=== PATIENT | male | born 1935 | race Caucasian/White ===

== ENCOUNTER 2016-10-31 22:52 | Inpatient (IN) | payer MEDICARE ==
[2016-10-31 23:23] LABS: APPEARANCE,URINE Clear; BILIRUBIN,URINE NEGATIVE (NEGATIVE); COLOR,URINE Yellow; GLUCOSE, URINE (UA) NEGATIVE (NEGATIVE); KETONES,URINE NEGATIVE (NEGATIVE); LEUKOCYTE ESTERASE ,URINE NEGATIVE (NEGATIVE); NITRATE,URINE NEGATIVE (NEGATIVE); OCCULT BLOOD,URINE 2+ (NEG-TRACE); PH,URINE 5.5; UROBILINOGEN,URINE 0.2 (0.2-1.0 EU)
[2016-10-31 23:29] LABS: RBC,URINE 0-2 (0-3AV/HPF); WBC,URINE 0-2 (0-5AV/HPF)
[2016-10-31 23:39] LABS: BASOPHILS % (AUTO) 1 % (0-3); EOSINOPHILS % (AUTO) 3 % (0-9); HEMATOCRIT 35 % (39-53); MEAN CORPUSCULAR VOLUME 94 fL (80-100); MONOCYTES % (AUTO) 6.3 % (0-12)
[2016-10-31 23:46] LABS: CALCIUM 8.7 mg/dl (8.5-10.1); POTASSIUM 4.7 mMol/L (3.5-5.1)
[2016-11-01] MEDS: SODIUM CHLORIDE 0.9% FLUSH 10 ML SOL IV SCH ×4 (01:00→17:15)
[2016-11-01] MEDS ORDERED: MORPHINE SULFATE 10 MG/ML SOL IV PRN (01:40)
[2016-11-01] MEDS ORDERED: SODIUM CHLORIDE 0.9% 500 ML 500 ML IV ONE (02:10)
[2016-11-01] MEDS ORDERED: AZITHROMYCIN 500 MG PDS IV ONE (02:10)
[2016-11-01] MEDS: SODIUM CHLORIDE 0.9% 1000ML 1,000 ML IV SCH ×2 (02:26→17:14)
[2016-11-01] MEDS: AZITHROMYCIN 500 MG PDS 500 MG in SODIUM CHLORIDE 0.9% 500 ML 500 ML IV SCH (02:26)
[2016-11-01] MEDS: ACETAMINOPHEN 325 MG PO PRN ×2 (02:27→09:34)
[2016-11-01] MEDS: LEVOTHYROXINE SODIUM 50 MCG TAB PO SCH (06:29)
[2016-11-01] MEDS ORDERED: FUROSEMIDE 20 MG TAB PO SCH (09:00)
[2016-11-01] MEDS: TAMSULOSIN HYDROCHLORIDE 0.4 MG CAP PO SCH (09:33)
[2016-11-01] MEDS: LISINOPRIL 20 MG TAB PO SCH (09:34)
[2016-11-01] MEDS: GABAPENTIN 300 MG CAP PO SCH ×3 (09:34→21:44)
[2016-11-01] MEDS: ALLOPURINOL 100 MG TAB PO SCH (09:34)
[2016-11-01] MEDS: ATENOLOL 25 MG TAB PO SCH (09:34)
[2016-11-01] MEDS: BUPROPION PO SCH (12:17)
[2016-11-01] MEDS: METFORMIN HCL 850 MG PO SCH (12:17)
[2016-11-01] MEDS ORDERED: CYANOCOBALAMIN 1000 MCG/ML SOL IM SCH (15:00)
[2016-11-01] MEDS ORDERED: CYANOCOBALAMIN 1000 MCG/ML SOL IM ONE (15:45)
[2016-11-01] MEDS ORDERED: ALBUTEROL NEB SOL 2.5MG/3ML 1 VIAL SOL NEB PRN (16:55)
[2016-11-01] MEDS: WARFARIN SODIUM 5 MG TAB PO SCH (18:48)
[2016-11-02] MEDS ORDERED: AZITHROMYCIN 500 MG PDS IV ONE (01:04)
[2016-11-02] MEDS ORDERED: SODIUM CHLORIDE 0.9% 500 ML 500 ML IV ONE (01:04)
[2016-11-02] MEDS: AZITHROMYCIN 500 MG PDS 500 MG in SODIUM CHLORIDE 0.9% 500 ML 500 ML IV SCH (01:23)
[2016-11-02] MEDS: SODIUM CHLORIDE 0.9% FLUSH 10 ML SOL IV SCH ×3 (01:25→17:24)
[2016-11-02] MEDS: SODIUM CHLORIDE 0.9% 1000ML 1,000 ML IV SCH ×2 (05:21→16:56)
[2016-11-02] MEDS: LEVOTHYROXINE SODIUM 50 MCG TAB PO SCH (06:12)
[2016-11-02] MEDS: BUPROPION PO SCH (09:32)
[2016-11-02] MEDS: TAMSULOSIN HYDROCHLORIDE 0.4 MG CAP PO SCH (09:32)
[2016-11-02] MEDS: FUROSEMIDE 40 MG TAB PO SCH (09:33)
[2016-11-02] MEDS: METFORMIN HCL 850 MG PO SCH (09:34)
[2016-11-02] MEDS: ATENOLOL 25 MG TAB PO SCH (09:34)
[2016-11-02] MEDS: LISINOPRIL 20 MG TAB PO SCH (09:34)
[2016-11-02] MEDS: GABAPENTIN 300 MG CAP PO SCH ×3 (09:34→20:45)
[2016-11-02] MEDS: ALLOPURINOL 100 MG TAB PO SCH (09:35)
[2016-11-02] MEDS: ACETAMINOPHEN 325 MG PO PRN (12:27)
[2016-11-02] MEDS: WARFARIN SODIUM 5 MG TAB PO SCH (17:23)
[2016-11-03] MEDS: SODIUM CHLORIDE 0.9% FLUSH 10 ML SOL IV SCH ×3 (01:41→17:33)
[2016-11-03] MEDS: AZITHROMYCIN 500 MG PDS 500 MG in SODIUM CHLORIDE 0.9% 500 ML 500 ML IV SCH (01:41)
[2016-11-03] MEDS: LEVOTHYROXINE SODIUM 50 MCG TAB PO SCH (06:49)
[2016-11-03] MEDS: ACETAMINOPHEN 325 MG PO PRN (08:00)
[2016-11-03] MEDS: BUPROPION PO SCH (09:09)
[2016-11-03] MEDS: ATENOLOL 25 MG TAB PO SCH (09:10)
[2016-11-03] MEDS: FUROSEMIDE 40 MG TAB PO SCH (09:10)
[2016-11-03] MEDS: METFORMIN HCL 850 MG PO SCH (09:10)
[2016-11-03] MEDS: GABAPENTIN 300 MG CAP PO SCH ×3 (09:10→20:12)
[2016-11-03] MEDS: TAMSULOSIN HYDROCHLORIDE 0.4 MG CAP PO SCH (09:10)
[2016-11-03] MEDS: LISINOPRIL 20 MG TAB PO SCH (09:11)
[2016-11-03] MEDS: ALLOPURINOL 100 MG TAB PO SCH (09:11)
[2016-11-03] MEDS: WARFARIN SODIUM 5 MG TAB PO SCH (17:34)
[2016-11-03] MEDS: AMLODIPINE 5 MG TAB PO SCH (21:47)
[2016-11-04] MEDS ORDERED: AZITHROMYCIN 500 MG PDS IV ONE (01:15)
[2016-11-04] MEDS ORDERED: SODIUM CHLORIDE 0.9% 500 ML 500 ML IV ONE (01:15)
[2016-11-04] MEDS: AZITHROMYCIN 500 MG PDS 500 MG in SODIUM CHLORIDE 0.9% 500 ML 500 ML IV SCH (01:29)
[2016-11-04] MEDS: SODIUM CHLORIDE 0.9% FLUSH 10 ML SOL IV SCH ×4 (01:34→18:45)
[2016-11-04] MEDS: LEVOTHYROXINE SODIUM 50 MCG TAB PO SCH (06:55)
[2016-11-04] MEDS: TAMSULOSIN HYDROCHLORIDE 0.4 MG CAP PO SCH (08:19)
[2016-11-04] MEDS: BUPROPION PO SCH (08:19)
[2016-11-04] MEDS: METFORMIN HCL 850 MG PO SCH (08:20)
[2016-11-04] MEDS: ATENOLOL 25 MG TAB PO SCH (08:20)
[2016-11-04] MEDS: FUROSEMIDE 40 MG TAB PO SCH (08:20)
[2016-11-04] MEDS: GABAPENTIN 300 MG CAP PO SCH ×3 (08:20→21:05)
[2016-11-04] MEDS: LISINOPRIL 20 MG TAB PO SCH (08:21)
[2016-11-04] MEDS: ALLOPURINOL 100 MG TAB PO SCH (08:21)
[2016-11-04] MEDS: AMLODIPINE 5 MG TAB PO SCH ×2 (08:22→10:44)
[2016-11-04] MEDS ORDERED: WARFARIN SODIUM 5 MG TAB PO SCH (18:00)
[2016-11-04] MEDS ORDERED: AMLODIPINE 5 MG TAB PO ONE (21:08)
[2016-11-05] MEDS: LEVOTHYROXINE SODIUM 50 MCG TAB PO SCH (06:03)
[2016-11-05] MEDS: SODIUM CHLORIDE 0.9% FLUSH 10 ML SOL IV SCH ×2 (06:04→08:41)
[2016-11-05 07:33] LABS: CALCIUM 8.2 mg/dl (8.5-10.1)
[2016-11-05 07:38] VITALS: BP 182/64; TEMP 97.6; O2SAT 95
[2016-11-05 07:44] LABS: BASOPHILS % (AUTO) 1 % (0-3); EOSINOPHILS % (AUTO) 5 % (0-9); HEMATOCRIT 31 % (39-53); MEAN CORPUSCULAR HGB CONC 35.5 gm/dl (32.0-36.0); MEAN CORPUSCULAR VOLUME 93 fL (80-100); MONOCYTES % (AUTO) 10.4 % (0-12); NEUTROPHILS % (AUTO) 57.7 % (37-80)
[2016-11-05 07:53] VITALS: PULSE 67; RESP 18
[2016-11-05] MEDS: FUROSEMIDE 40 MG TAB PO SCH (08:38)
[2016-11-05] MEDS: BUPROPION PO SCH (08:38)
[2016-11-05] MEDS: METFORMIN HCL 850 MG PO SCH (08:38)
[2016-11-05] MEDS: TAMSULOSIN HYDROCHLORIDE 0.4 MG CAP PO SCH (08:38)
[2016-11-05] MEDS: GABAPENTIN 300 MG CAP PO SCH (08:39)
[2016-11-05] MEDS: ATENOLOL 25 MG TAB PO SCH (08:39)
[2016-11-05] MEDS: LISINOPRIL 20 MG TAB PO SCH (08:40)
[2016-11-05] MEDS: ALLOPURINOL 100 MG TAB PO SCH (08:40)
[2016-11-05] MEDS: AMLODIPINE 5 MG TAB PO SCH (08:42)
== END 2016-11-05 09:50 | disposition swing bed (61) | DRG 195 ==
LOC: ED 22:52 → ACUTE CARE 11-01 01:04
PROVIDERS: ADMIT Family Medicine; ATTEND Family Medicine
PROC: F01ZDZZ Gait and/or Balance Assessment (ICD-10-PCS; principal; 2016-11-01)
PROC: F01ZBZZ Bed Mobility Assessment (ICD-10-PCS; 2016-11-01)
PROC: F01ZCZZ Transfer Assessment (ICD-10-PCS; 2016-11-01)
PROC: F02Z1ZZ Dressing Assessment (ICD-10-PCS; 2016-11-02)
PROC: F02Z3ZZ Grooming/Personal Hygiene Assessment (ICD-10-PCS; 2016-11-02)
DX: J18.9 Pneumonia, unspecified organism (principal); M79.604 Pain in right leg; Z79.01 Long term (current) use of anticoagulants; W18.2XXA Fall in (into) shower or empty bathtub, initial encounter; S61.412A Laceration without foreign body of left hand, initial encounter; R53.1 Weakness
CPT/HCPCS: 36415; 71010; 73110; 73502; 80048; 81001; 82962; 85025; 85610; 94150; 94640; 94664; 99070; 99222; 99285; J0456; J2270; J3420; J7603; A6232

== ENCOUNTER 2016-11-05 09:01 | Inpatient (IN) | payer MEDICARE ==
[2016-11-05] MEDS ORDERED: ACETAMINOPHEN 325 MG PO PRN (10:13)
[2016-11-05] MEDS: GABAPENTIN 300 MG CAP PO SCH ×2 (11:43→20:11)
[2016-11-05] MEDS: WARFARIN SODIUM 2.5 MG TAB PO SCH (15:21)
[2016-11-05] MEDS: CHOLECALCIFEROL 1,000 IU TAB PO SCH (20:11)
[2016-11-06] MEDS: LEVOTHYROXINE SODIUM 50 MCG TAB PO SCH (06:32)
[2016-11-06] MEDS: UBIDECARENONE 100 MG CAPSULE PO SCH (08:30)
[2016-11-06] MEDS: TAMSULOSIN HYDROCHLORIDE 0.4 MG CAP PO SCH (08:30)
[2016-11-06] MEDS: METFORMIN HCL 850 MG TABLET PO SCH (08:30)
[2016-11-06] MEDS: GABAPENTIN 300 MG CAP PO SCH ×3 (08:31→20:18)
[2016-11-06] MEDS: ATENOLOL 25 MG TAB PO SCH (08:31)
[2016-11-06] MEDS: AMLODIPINE 5 MG TAB PO SCH (08:31)
[2016-11-06] MEDS: CHOLECALCIFEROL 1,000 IU TAB PO SCH ×2 (08:32→20:18)
[2016-11-06] MEDS: BUPROPION 75 MG TAB PO SCH (08:32)
[2016-11-06] MEDS: LISINOPRIL 20 MG TAB PO SCH (08:32)
[2016-11-06] MEDS: ALLOPURINOL 100 MG TAB PO SCH (08:33)
[2016-11-06] MEDS ORDERED: FUROSEMIDE 20 MG TAB PO SCH (09:00)
[2016-11-06] MEDS: WARFARIN SODIUM 2.5 MG TAB PO SCH (17:13)
[2016-11-06] MEDS: ALBUTEROL NEB SOL 2.5MG/3ML 1 VIAL SOL NEB PRN (17:16)
[2016-11-06] MEDS ORDERED: AZITHROMYCIN 250 MG TAB PO ONE (19:57)
[2016-11-06] MEDS ORDERED: CEFUROXIME 250 MG/5 ML PDR PO SCH (21:00)
[2016-11-06] MEDS: CEFPROZIL 250 MG/5 ML SUSP.RECON PO SCH (21:09)
[2016-11-07] MEDS: LEVOTHYROXINE SODIUM 50 MCG TAB PO SCH (06:48)
[2016-11-07] MEDS: AMLODIPINE 5 MG TAB PO SCH (08:07)
[2016-11-07] MEDS: ALLOPURINOL 100 MG TAB PO SCH (08:07)
[2016-11-07] MEDS: CHOLECALCIFEROL 1,000 IU TAB PO SCH ×2 (08:07→20:58)
[2016-11-07] MEDS: ATENOLOL 25 MG TAB PO SCH (08:08)
[2016-11-07] MEDS: GABAPENTIN 300 MG CAP PO SCH ×3 (08:08→20:58)
[2016-11-07] MEDS: UBIDECARENONE 100 MG CAPSULE PO SCH (08:09)
[2016-11-07] MEDS: BUPROPION 75 MG TAB PO SCH (08:09)
[2016-11-07] MEDS: TAMSULOSIN HYDROCHLORIDE 0.4 MG CAP PO SCH (08:09)
[2016-11-07] MEDS: LISINOPRIL 20 MG TAB PO SCH (08:09)
[2016-11-07] MEDS: METFORMIN HCL 850 MG TABLET PO SCH (08:09)
[2016-11-07] MEDS: CEFPROZIL 250 MG/5 ML SUSP.RECON PO SCH ×2 (08:16→21:03)
[2016-11-07] MEDS: FUROSEMIDE 40 MG TAB PO SCH (13:42)
[2016-11-07] MEDS: ALBUTEROL NEB SOL 2.5MG/3ML 1 VIAL SOL NEB PRN (15:05)
[2016-11-07] MEDS: WARFARIN SODIUM 2.5 MG TAB PO SCH (17:58)
[2016-11-07] MEDS: AZITHROMYCIN 250 MG TAB PO SCH (21:02)
[2016-11-08] MEDS: LEVOTHYROXINE SODIUM 50 MCG TAB PO SCH (06:01)
[2016-11-08] MEDS: GABAPENTIN 300 MG CAP PO SCH ×3 (09:18→20:37)
[2016-11-08] MEDS: TAMSULOSIN HYDROCHLORIDE 0.4 MG CAP PO SCH (09:18)
[2016-11-08] MEDS: FUROSEMIDE 40 MG TAB PO SCH (09:18)
[2016-11-08] MEDS: LISINOPRIL 20 MG TAB PO SCH (09:18)
[2016-11-08] MEDS: CHOLECALCIFEROL 1,000 IU TAB PO SCH ×2 (09:18→20:38)
[2016-11-08] MEDS: ATENOLOL 25 MG TAB PO SCH (09:19)
[2016-11-08] MEDS: ALLOPURINOL 100 MG TAB PO SCH (09:19)
[2016-11-08] MEDS: AMLODIPINE 5 MG TAB PO SCH (09:19)
[2016-11-08] MEDS: UBIDECARENONE 100 MG CAPSULE PO SCH (09:19)
[2016-11-08] MEDS: METFORMIN HCL 850 MG TABLET PO SCH (09:19)
[2016-11-08] MEDS: BUPROPION 75 MG TAB PO SCH (09:19)
[2016-11-08] MEDS: CEFPROZIL 250 MG/5 ML SUSP.RECON PO SCH ×2 (09:25→20:38)
[2016-11-08] MEDS: WARFARIN SODIUM 2.5 MG TAB PO SCH (17:56)
[2016-11-08] MEDS: AZITHROMYCIN 250 MG TAB PO SCH (20:38)
[2016-11-09] MEDS: LEVOTHYROXINE SODIUM 50 MCG TAB PO SCH (06:46)
[2016-11-09] MEDS: TAMSULOSIN HYDROCHLORIDE 0.4 MG CAP PO SCH (09:22)
[2016-11-09] MEDS: FUROSEMIDE 40 MG TAB PO SCH (09:22)
[2016-11-09] MEDS: UBIDECARENONE 100 MG CAPSULE PO SCH (09:22)
[2016-11-09] MEDS: GABAPENTIN 300 MG CAP PO SCH ×3 (09:23→21:26)
[2016-11-09] MEDS: AMLODIPINE 5 MG TAB PO SCH (09:23)
[2016-11-09] MEDS: METFORMIN HCL 850 MG TABLET PO SCH (09:23)
[2016-11-09] MEDS: CHOLECALCIFEROL 1,000 IU TAB PO SCH ×2 (09:24→21:27)
[2016-11-09] MEDS: ATENOLOL 25 MG TAB PO SCH (09:24)
[2016-11-09] MEDS: BUPROPION 75 MG TAB PO SCH (09:24)
[2016-11-09] MEDS: LISINOPRIL 20 MG TAB PO SCH (09:25)
[2016-11-09] MEDS: ALLOPURINOL 100 MG TAB PO SCH (09:25)
[2016-11-09] MEDS: CEFPROZIL 250 MG/5 ML SUSP.RECON PO SCH ×2 (09:28→21:28)
[2016-11-09] MEDS ORDERED: WARFARIN SODIUM 2.5 MG TAB PO SCH ×2 (11:00→18:00)
[2016-11-09] MEDS: AZITHROMYCIN 250 MG TAB PO SCH (21:26)
[2016-11-10] MEDS: LEVOTHYROXINE SODIUM 50 MCG TAB PO SCH (06:58)
[2016-11-10] MEDS: CEFPROZIL 250 MG/5 ML SUSP.RECON PO SCH (09:09)
[2016-11-10] MEDS: TAMSULOSIN HYDROCHLORIDE 0.4 MG CAP PO SCH (09:10)
[2016-11-10] MEDS: UBIDECARENONE 100 MG CAPSULE PO SCH (09:10)
[2016-11-10] MEDS: GABAPENTIN 300 MG CAP PO SCH ×2 (09:11→13:22)
[2016-11-10] MEDS: FUROSEMIDE 40 MG TAB PO SCH (09:11)
[2016-11-10] MEDS: METFORMIN HCL 850 MG TABLET PO SCH (09:11)
[2016-11-10] MEDS: AMLODIPINE 5 MG TAB PO SCH (09:12)
[2016-11-10] MEDS: ATENOLOL 25 MG TAB PO SCH (09:12)
[2016-11-10] MEDS: CHOLECALCIFEROL 1,000 IU TAB PO SCH (09:12)
[2016-11-10] MEDS: BUPROPION 75 MG TAB PO SCH (09:13)
[2016-11-10] MEDS: LISINOPRIL 20 MG TAB PO SCH (09:14)
[2016-11-10] MEDS: ALLOPURINOL 100 MG TAB PO SCH (09:14)
[2016-11-10] MEDS ORDERED: WARFARIN SODIUM 5 MG TAB PO SCH ×2 (10:54→18:00)
[2016-11-10 14:00] VITALS: BP 135/65; PULSE 64; RESP 17; TEMP 97.4; O2SAT 97
== END 2016-11-10 16:10 | disposition home health service (06) | DRG 195 ==
LOC: ACUTE CARE 09:55
PROVIDERS: ADMIT Family Medicine; ATTEND Family Medicine
PROC: F01ZDFZ Gait and/or Balance Assessment using Assistive, Adaptive, Supportive or Protective Equipment (ICD-10-PCS; principal; 2016-11-05)
PROC: F01ZBZZ Bed Mobility Assessment (ICD-10-PCS; 2016-11-05)
PROC: F01ZCZZ Transfer Assessment (ICD-10-PCS; 2016-11-05)
PROC: F02Z1ZZ Dressing Assessment (ICD-10-PCS; 2016-11-05)
PROC: F02Z0ZZ Bathing/Showering Assessment (ICD-10-PCS; 2016-11-05)
PROC: F02Z3ZZ Grooming/Personal Hygiene Assessment (ICD-10-PCS; 2016-11-05)
DX: J18.9 Pneumonia, unspecified organism (principal); I10 Essential (primary) hypertension; R53.1 Weakness; E78.5 Hyperlipidemia, unspecified; Z79.01 Long term (current) use of anticoagulants
CPT/HCPCS: 36415; 82962; 85610; J7603

== ENCOUNTER 2017-08-11 12:01 | Inpatient (IN) | payer MEDICARE ==
[2017-08-11] MEDS ORDERED: SODIUM CHLORIDE 0.9% FLUSH 10 ML SOL IV PRN (12:12)
[2017-08-11] MEDS ORDERED: SODIUM CHLORIDE 0.9% 500 ML 500 ML IV ONE (12:12)
[2017-08-11] MEDS ORDERED: TRAMADOL HYDROCHLORIDE 50 MG TAB PO SCH (12:45)
[2017-08-11 13:33] LABS: ABO B; ANTIBODY SCREEN Negative; RH TYPE Positive; UNIT TYPE O POSITIVE
[2017-08-11] MEDS ORDERED: HYDRALAZINE HYDROCHLORIDE 10 MG TAB PO ONE (15:46)
[2017-08-11] MEDS ORDERED: FUROSEMIDE 20mg SOL IV ONE (16:00)
[2017-08-11] MEDS ORDERED: HYDRALAZINE HYDROCHLORIDE 10 MG TAB PO PRN (18:00)
[2017-08-11] MEDS: FERROUS GLUCONATE 324 MG TABLET PO SCH (20:03)
[2017-08-11] MEDS: ACETAMINOPHEN 325 MG PO SCH (20:04)
[2017-08-11] MEDS ORDERED: TAMSULOSIN HYDROCHLORIDE 0.4 MG CAP PO SCH (21:00)
[2017-08-11] MEDS ORDERED: GABAPENTIN 300 MG CAP PO SCH (21:00)
[2017-08-11 21:15] LABS: UNIT TYPE O POSITIVE
[2017-08-11 23:43] VITALS: O2SAT 98
[2017-08-12] MEDS ORDERED: LEVOTHYROXINE SODIUM 50 MCG TAB PO SCH (07:00)
[2017-08-12 07:18] LABS: CALCIUM 8.4 mg/dl (8.5-10.1); POTASSIUM 4.6 mMol/L (3.5-5.1)
[2017-08-12 07:25] LABS: BASOPHILS % (AUTO) 1 % (0-3); EOSINOPHILS % (AUTO) 7 % (0-9); HEMATOCRIT 29 % (39-53); MEAN CORPUSCULAR HGB CONC 34.9 gm/dl (32.0-36.0); MEAN CORPUSCULAR VOLUME 96 fL (80-100); MONOCYTES % (AUTO) 6.1 % (0-12); NEUTROPHILS % (AUTO) 59.3 % (37-80)
[2017-08-12 08:10] VITALS: BP 164/64; PULSE 81; RESP 14; TEMP 97.3
[2017-08-12] MEDS: FERROUS GLUCONATE 324 MG TABLET PO SCH (08:52)
[2017-08-12] MEDS: GABAPENTIN 300 MG CAP PO SCH ×2 (08:52→12:26)
[2017-08-12] MEDS: ACETAMINOPHEN 325 MG PO SCH (08:52)
[2017-08-12] MEDS ORDERED: ATENOLOL 25 MG TAB PO SCH (09:00)
[2017-08-12] MEDS ORDERED: BUPROPION 75 MG TAB PO SCH (09:00)
[2017-08-12] MEDS ORDERED: LISINOPRIL 20 MG TAB PO SCH (09:00)
[2017-08-12] MEDS ORDERED: BUMETANIDE 1 MG TAB PO SCH (09:00)
== END 2017-08-12 12:35 | disposition home or self-care (01) | DRG 812 ==
LOC: ACUTE CARE 12:09
PROVIDERS: ADMIT Family Medicine; ATTEND Family Medicine
PROC: 30233N1 Transfusion of Nonautologous Red Blood Cells into Peripheral Vein, Percutaneous Approach (ICD-10-PCS; principal; 2017-08-11)
DX: D64.9 Anemia, unspecified (principal); E11.22 Type 2 diabetes mellitus with diabetic chronic kidney disease; I12.9 Hypertensive chronic kidney disease with stage 1 through stage 4 chronic kidney disease, or unspecified chronic kidney disease; N18.9 Chronic kidney disease, unspecified; I25.10 Atherosclerotic heart disease of native coronary artery without angina pectoris; Z95.2 Presence of prosthetic heart valve; Z79.01 Long term (current) use of anticoagulants
CPT/HCPCS: 36415; 80048; 82272; 82962; 85018; 85025; 85610; 86850; 86900; 86901; 86920; 99070; J1940; P9016; A9270-GY

== ENCOUNTER 2017-11-24 15:58 | Inpatient (IN) | payer MEDICARE ==
[2017-11-24] MEDS ORDERED: SODIUM CHLORIDE 0.9% 1000ML 1,000 ML IV ONE ×2 (16:07→17:45)
[2017-11-24] MEDS ORDERED: ONDANSETRON HCL 4 MG/2 ML SOL IV ONE (16:07)
[2017-11-24] MEDS: SODIUM CHLORIDE 0.9% FLUSH 10 ML SOL IV PRN ×2 (16:15→16:20)
[2017-11-24] MEDS ORDERED: ONDANSETRON HCL 4 MG/2 ML SOL ONE (16:20)
[2017-11-24] MEDS ORDERED: ACETAMINOPHEN 325 MG PO ONE ×2 (16:20→17:57)
[2017-11-24 16:23] LABS: BASOPHILS % (AUTO) 1 % (0-3); EOSINOPHILS % (AUTO) 0 % (0-9); HEMATOCRIT 31 % (39-53); HEMOGLOBIN 10.9 gm/dl (13.5-17.7); LYMPHOCYTES % (AUTO) 5.77 % (10-50); MEAN CORPUSCULAR HEMOGLOBIN 33.1 pg (27.0-32.0); MEAN CORPUSCULAR HGB CONC 34.6 gm/dl (32.0-36.0); MEAN CORPUSCULAR VOLUME 96 fL (80-100); MONOCYTES % (AUTO) 9.9 % (0-12); NEUTROPHILS % (AUTO) 83.5 % (37-80)
[2017-11-24] MEDS ORDERED: ACETAMINOPHEN 325 MG ONE (16:37)
[2017-11-24 16:42] LABS: ALBUMIN 3.4 gm/dl (3.4-5.0); BILIRUBIN,TOTAL 0.7 mg/dl (0.2-1.0); CALCIUM 8.4 mg/dl (8.5-10.1); CARBON DIOXIDE 20.3 mEq/L (21-32); CREATININE 2.69 mg/dl (0.80-1.30); POTASSIUM 5.1 mMol/L (3.5-5.1); TOTAL PROTEIN 6.9 gm/dl (6.4-8.2); TROP I 0.043 ng/ml (0.000-0.056)
[2017-11-24 16:46] LABS: INR 2.37 (0.86-1.12)
[2017-11-24] MEDS ORDERED: WARFARIN SODIUM 2.5 MG TAB PO SCH ×2 (18:00→18:45)
[2017-11-24] MEDS: WARFARIN SODIUM 2.5 MG TAB PO SCH (19:14)
[2017-11-24] MEDS ORDERED: SODIUM CHLORIDE/KCL 20MEQ 1,000 ML IV SCH (19:30)
[2017-11-24] MEDS ORDERED: ACETAMINOPHEN 650 MG PO SCH (21:00)
[2017-11-24] MEDS: TAMSULOSIN HYDROCHLORIDE 0.4 MG CAP PO SCH (21:21)
[2017-11-24] MEDS: FERROUS GLUCONATE 324 MG TABLET PO SCH (21:22)
[2017-11-24] MEDS: FAMOTIDINE 20 MG TAB PO SCH (21:22)
[2017-11-24] MEDS: AMLODIPINE 5 MG TAB PO SCH (22:02)
[2017-11-24] MEDS: LISINOPRIL 20 MG TAB PO SCH (22:03)
[2017-11-24] MEDS: ONDANSETRON HCL 4 MG/2 ML SOL IV PRN (22:05)
[2017-11-25] MEDS ORDERED: FUROSEMIDE 20mg SOL IV ONE (01:17)
[2017-11-25] MEDS: SODIUM CHLORIDE 0.9% FLUSH 10 ML SOL IV PRN ×2 (01:24→21:28)
[2017-11-25] MEDS ORDERED: LEVOTHYROXINE SODIUM 50 MCG TAB PO SCH (07:00)
[2017-11-25 07:23] LABS: HEMATOCRIT 31 % (39-53); MEAN CORPUSCULAR HEMOGLOBIN 34.5 pg (27.0-32.0); MEAN CORPUSCULAR HGB CONC 36.1 gm/dl (32.0-36.0); MEAN CORPUSCULAR VOLUME 96 fL (80-100)
[2017-11-25 07:26] LABS: INR 2.27 (0.86-1.12)
[2017-11-25 07:27] LABS: CALCIUM 7.9 mg/dl (8.5-10.1); CARBON DIOXIDE 20.7 mEq/L (21-32); CREATININE 2.02 mg/dl (0.80-1.30); POTASSIUM 4.1 mMol/L (3.5-5.1); THYROID STIMULATING HORMONE 0.196 uIU/ml (0.358-3.740)
[2017-11-25 07:43] LABS: APPEARANCE,URINE Clear; BILIRUBIN,URINE NEGATIVE (NEGATIVE); COLOR,URINE Yellow; GLUCOSE, URINE (UA) NEGATIVE (NEGATIVE); KETONES,URINE NEGATIVE (NEGATIVE); LEUKOCYTE ESTERASE ,URINE NEGATIVE (NEGATIVE); NITRATE,URINE NEGATIVE (NEGATIVE); OCCULT BLOOD,URINE 2+ (NEG-TRACE); UROBILINOGEN,URINE 0.2 (0.2-1.0 EU)
[2017-11-25 07:51] LABS: BAND NEUTROPHILS % (MANUAL) 29 %; EOSINOPHILS % (MANUAL) 0 % (0-9); LYMPHOCYTES % (MANUAL) 14 % (10-50); MONOCYTES % (MANUAL) 9 % (0-12); NEUTROPHILS % (MANUAL) 48 % (37-80)
[2017-11-25 07:52] LABS: ANISOCYTOSIS SLIGHT AMT; BASOPHILS % (MANUAL) 0 % (0-3)
[2017-11-25 08:03] LABS: EPITHELIAL CELLS 0-2 (SQUAMOUS); WBC,URINE 0-2 (0-5AV/HPF)
[2017-11-25 08:04] LABS: BACTERIA TRACE (< 1+); CRYSTALS 1+ (0-3 AVE/HPF)
[2017-11-25] MEDS: AMLODIPINE 5 MG TAB PO SCH (09:02)
[2017-11-25] MEDS: LISINOPRIL 20 MG TAB PO SCH (09:02)
[2017-11-25] MEDS: FERROUS GLUCONATE 324 MG TABLET PO SCH ×2 (09:02→21:27)
[2017-11-25] MEDS: ALLOPURINOL 100 MG TAB PO SCH (09:03)
[2017-11-25] MEDS ORDERED: AMLODIPINE 5 MG TAB PO ONE (17:30)
[2017-11-25] MEDS ORDERED: WARFARIN SODIUM 2.5 MG TAB PO SCH (18:00)
[2017-11-25] MEDS: TAMSULOSIN HYDROCHLORIDE 0.4 MG CAP PO SCH (21:27)
[2017-11-25] MEDS: FAMOTIDINE 20 MG TAB PO SCH (21:27)
[2017-11-26] MEDS ORDERED: LEVOTHYROXINE SODIUM 50 MCG TAB PO SCH (07:00)
[2017-11-26 07:09] LABS: CARBON DIOXIDE 20.9 mEq/L (21-32); CREATININE 1.52 mg/dl (0.80-1.30); POTASSIUM 3.7 mMol/L (3.5-5.1)
[2017-11-26 07:14] LABS: CALCIUM 7.9 mg/dl (8.5-10.1)
[2017-11-26 07:22] LABS: HEMATOCRIT 29 % (39-53); HEMOGLOBIN 10.3 gm/dl (13.5-17.7); MEAN CORPUSCULAR HEMOGLOBIN 33.7 pg (27.0-32.0); MEAN CORPUSCULAR HGB CONC 35.9 gm/dl (32.0-36.0); MEAN CORPUSCULAR VOLUME 94 fL (80-100)
[2017-11-26 07:40] LABS: INR 2.96 (0.86-1.12)
[2017-11-26 07:47] LABS: ANISOCYTOSIS SLIGHT AMT; BAND NEUTROPHILS % (MANUAL) 26 %; BASOPHILS % (MANUAL) 0 % (0-3); EOSINOPHILS % (MANUAL) 3 % (0-9); LYMPHOCYTES % (MANUAL) 6 % (10-50); MONOCYTES % (MANUAL) 5 % (0-12); NEUTROPHILS % (MANUAL) 60 % (37-80)
[2017-11-26] MEDS: LISINOPRIL 20 MG TAB PO SCH (09:47)
[2017-11-26] MEDS: AMLODIPINE 5 MG TAB PO SCH (09:47)
[2017-11-26] MEDS: FERROUS GLUCONATE 324 MG TABLET PO SCH ×2 (09:47→20:58)
[2017-11-26] MEDS: ALLOPURINOL 100 MG TAB PO SCH (09:50)
[2017-11-26] MEDS ORDERED: ALUMINUM/MAGNESIUM 30 ML SUS PO PRN (16:29)
[2017-11-26] MEDS: ACETAMINOPHEN 325 MG PO PRN ×2 (16:42→21:03)
[2017-11-26 18:41] VITALS: TEMP 97.6
[2017-11-26] MEDS: WARFARIN SODIUM 2.5 MG TAB PO SCH (19:24)
[2017-11-26] MEDS: SODIUM CHLORIDE 0.9% FLUSH 10 ML SOL IV PRN (19:33)
[2017-11-26 20:29] VITALS: BP 160/63; RESP 22
[2017-11-26] MEDS: TAMSULOSIN HYDROCHLORIDE 0.4 MG CAP PO SCH (20:58)
[2017-11-26] MEDS: FAMOTIDINE 20 MG TAB PO SCH (20:58)
[2017-11-26] MEDS ORDERED: DUTASTERIDE 0.5 MG SGL PO SCH (21:00)
[2017-11-26] MEDS: ONDANSETRON HCL 4 MG/2 ML SOL IV PRN (21:01)
[2017-11-27] MEDS: EPINEPHRINE 1:1000 AMP 1 MG/ML SOL IV PRN ×9 (00:17→01:14)
[2017-11-27] MEDS ORDERED: CALCIUM GLUCONATE 10% 100 MG/ML SOL IV ONE (00:34)
[2017-11-27] MEDS ORDERED: SODIUM BICARBONATE 8.4%(ADULT) 1 MEQ/ML SOL IV ONE ×2 (00:37→01:15)
[2017-11-27] MEDS ORDERED: CALCIUM GLUCONATE 100 MG/ML SOL IV ONE (00:37)
[2017-11-27] MEDS: SODIUM CHLORIDE 0.9% 1000ML 2,000 ML IV SCH ×2 (00:38→00:55)
[2017-11-27] MEDS ORDERED: EPINEPHRINE 1:1000 AMP 1 MG/ML SOL ONE ×3 (00:42→01:02)
[2017-11-27] MEDS ORDERED: EPINEPHRINE IV SCH (00:45)
[2017-11-27] MEDS ORDERED: SODIUM CHLORIDE 0.9% IV SCH (00:45)
[2017-11-27] MEDS ORDERED: EPINEPHRINE 1:10,000 PREFILL 0.1 MG/ML SOL ONE (00:46)
[2017-11-27] MEDS ORDERED: DOPAMINE PREMIX 400,000 MCG/250 ML SOL IV PRN (00:54)
[2017-11-27 01:02] LABS: CARBON DIOXIDE 14.2 mEq/L (21-32); CREATININE 2.11 mg/dl (0.80-1.30); POTASSIUM 4.7 mMol/L (3.5-5.1)
[2017-11-27 03:19] VITALS: PULSE 42
[2017-11-27 03:31] VITALS: O2SAT 86
[2017-11-27] MEDS ORDERED: AMLODIPINE 5 MG TAB PO SCH (09:00)
== END 2017-11-27 06:01 | disposition expired | DRG 641 ==
LOC: ED 15:58 → ACUTE CARE 17:48 → UNDOADMOB 17:48 → ACUTE CARE 18:35 → OBSVTOIN 18:35
PROVIDERS: ADMIT Family Medicine; ATTEND Family Medicine
PROC: F01K5ZZ Range of Motion and Joint Integrity Assessment of Musculoskeletal System - Upper Back / Upper Extremity (ICD-10-PCS; principal; 2017-11-26)
PROC: F02Z1ZZ Dressing Assessment (ICD-10-PCS; 2017-11-26)
PROC: F02Z3ZZ Grooming/Personal Hygiene Assessment (ICD-10-PCS; 2017-11-26)
PROC: F01ZDFZ Gait and/or Balance Assessment using Assistive, Adaptive, Supportive or Protective Equipment (ICD-10-PCS; 2017-11-26)
DX: E86.0 Dehydration (principal); K52.9 Noninfective gastroenteritis and colitis, unspecified; Z79.01 Long term (current) use of anticoagulants; D64.9 Anemia, unspecified; R33.9 Retention of urine, unspecified; N18.3 Chronic kidney disease, stage 3 (moderate); I10 Essential (primary) hypertension
CPT/HCPCS: 36415; 51798; 71045; 74019; 80048; 80053; 81001; 82272; 82962; 83880; 84443; 84484; 85007; 85025; 85027; 85610; 87040; 93005; 96365; 96366; 96374; 99222; 99238; 99285; J0610; J1940; J2405; A9270-GY